=== PATIENT | female | born 1980 | race Caucasian/White ===

== ENCOUNTER 2019-05-18 06:33 | Outpatient (CLI) | payer OTHER, SELFPAY ==
[2019-05-18 07:25] LABS: Hematocrit 42.2 % (37.0-47.0); Hemoglobin 14.4 g/dL (12.0-15.0); Mean Corpuscular HGB Conc 34.1 g/dl (32-36); Mean Corpuscular Hemoglobin 30.1 pg (26-34); Mean Corpuscular Volume 88.1 fl (80-100); Mean Platelet Volume 9.6 fl (7.4-10.4); Platelet Count Result 268 k/mm3 (150-375); Red Blood Count 4.79 M/mm3 (4.2-5.4); Red Cell Distribution Width 12.4 % (11.5-14.5); White Blood Count 4.1 K/mm3 (4.5-10.0)
[2019-05-18 07:38] LABS: Blood Urea Nitrogen 14 mg/dL (7-17); Calcium 8.9 mg/dL (8.4-10.2); Carbon Dioxide 26 mmol/L (22-30); Chloride 100 mmol/L (98-107); Estimated Glomerular Filt Rate > 60; Glucose 78 mg/dL (65-105); Potassium 3.9 mmol/L (3.4-5.0); Sodium 139 mmol/L (137-145)
[2019-05-18 08:45] LABS: Folic Acid > 20.0 ng/mL (2.76->20)
== END 2019-05-18 06:34 | disposition home or self-care (01) ==
PROVIDERS: PCP Family Medicine; Visit Provider Nurse Practitioner Family
DX: R20.2 Paresthesia of skin (principal); E53.8 Deficiency of other specified B group vitamins
CPT/HCPCS: 36415; 80048; 82607; 82746; 84443; 85027

== ENCOUNTER 2019-12-31 09:04 | Emergency (ER) | payer OTHER, SELFPAY ==
--- NOTE | ~2019-12-31 | US_ITS ---
EXAMINATION: US pelvic complete w TV DATE: 12/31/2019 11:17 INDICATION: Left lower quadrant abdominal pain. TECHNIQUE: Multiple transabdominal and transvaginal sonographic images of the pelvis were obtained. COMPARISON: CT abdomen and pelvis 12/31/2019 FINDINGS: TRANSABDOMINAL ULTRASOUND: The uterus measures 9.6 x 4.3 x 4.5 cm. There is trace free fluid in the pelvis. TRANSVAGINAL ULTRASOUND: The endometrial complex measures 6 mm in thickness. The right ovary measures 3.2 x 2.4 x 2.7 cm. The left ovary measures 3.6 x 2.6 x 2.1 cm. There is normal vascular flow in the ovaries. IMPRESSION: 1. Normal pelvis. Reviewed, dictated and finalized at location A. IMPRESSION: 1. Normal pelvis.
--- NOTE | ~2019-12-31 | CT_ITS ---
EXAMINATION: CT abdomen pelvis w con DATE: 12/31/2019 10:11 INDICATION: Low abdominal pain. TECHNIQUE: Computed tomography (CT) of the abdomen and pelvis was performed with 100 mL Omnipaque 350 intravenous contrast. Automated exposure control and iterative reconstruction technique were employe d. The dose-length product was 260.15 mGy-cm. COMPARISON: None. FINDINGS: The visualized portions of the lung bases are clear without pneumonia or pleural effusion. The heart size is normal. No pericardial effusion. There are cysts in the liver measuring up to 1.5 c m. The gallbladder, spleen, pancreas, adrenal glands, and kidneys are normal. There are no dilated lo ops of bowel. The appendix is normal. There are no pathologically enlarged lymph nodes. There is trac e pelvic ascites. There is mild lumbar spondylosis. IMPRESSION: 1. No etiology for the patient's symptoms. Reviewed, dictated and finalized at location A.
[2019-12-31 09:08] VITALS: BP 152/83; PULSE 95; RESP 16; TEMP 36.2; O2SAT 100
--- NOTE | 2019-12-31 09:24 | ED.ABDPAIN ---
HPI - Abdominal Pain General Chief Complaint: Abdominal Pain Stated Complaint: abd pain Time Seen by Provider: 12/31/19 09:11 Source: patient Mode of arrival: ambulatory Limitations: no limitations History of Present Illness HPI narrative: This patient is a 39 year old female who presents for an evaluation of lower abdominal pain for 6 days. She states starting on Thursday she developed lower abdominal bloating with constipation. She has been taking laxatives and she is having bowel movements. She has continued to have constant lower abdominal pain and she developed nausea on Thursday. She denies vomiting, fever or urinary symptoms. She denies radiating pain to her back. Currently her pain is 5/10. Related Data Home Medications Medication Instructions Recorded Confirmed No Home Medications 12/31/19 12/31/19 Allergies Allergy/AdvReac Type Severity Reaction Status Date / Time No Known Allergies Allergy Unknown Verified 12/31/19 09:09 Review of Systems Review of Systems: All systems reviewed & are unremarkable except as noted in HPI and below Constitutional: Constitutional: Denies chills and Denies fever(s) Gastrointestinal: Gastrointestinal: Reports abdominal pain, Reports constipation, Reports nausea and Denies vomiting Genitourinary: Genitourinary: Denies hematuria, Denies dysuria and Denies flank pain Musculoskeletal: Musculoskeletal: Denies back pain PMFSH Past Medical History Medical History (Updated 12/31/19 @ 11:55 by Malena Johnson MD) Patient denies medical problems Surgical History Surgical History (Updated 12/31/19 @ 09:25 by Malena Johnson MD) H/O section Family History Family History (System 11/29/19 @ 09:08 by Tara Newman) Other Diabetes mellitus Social History Social History (System 11/29/19 @ 09:08 by Tara Newman) Smoking status: Never smoker Alcohol intake: current Substance use: never Substance use type: does not use Gender identity (if verbalized by the patient): Female Exam Const: General: no acute distress and alert Orientation/consciousness: patient oriented x3 HENMT: Head: atraumatic General nose exam: No nasal polyps present Face and sinus: face symmetric Mouth: Yes Normal oral and palatal mucosa present, Yes lip normal, Yes oropharynx normal and Yes moist mucous membranes Resp: Effort & Inspection: normal respiratory effort and no retractions Auscultation: clear to auscultation bilaterally Cardio: Rate: regular rate Rhythm: regular rhythm Heart sounds: no murmurs GI: GI Palp: Yes Soft to palpation, Yes Tenderness to palpation present (GI) (LLQ), Yes Guarding due to palpation present (GI) and No Rigid due to palpation Skin: General skin exam: normal color Rashes: no rashes Neuro: General: patient oriented x3 and moves all extremities Course Reevaluation(s) Reevaluation #1: I discussed with patient that CT and ultrasound are unremarkable. She declined pain medications. I discsused discharge plan and treatment. She will increase fiber intake. She denies vaginal discharge to suggest need for pelvic exam Date: 12/31/19 Time: 11:52 Vital Signs Vital signs: Vital Signs Temperature 97.1 F L 12/31/19 09:08 Pulse Rate 95 12/31/19 09:08 Respiratory Rate 16 12/31/19 09:08 Blood Pressure 152/83 H 12/31/19 09:08 Pulse Oximetry 100 12/31/19 09:08 Temperature 97.1 F L 12/31/19 09:08 Pulse Rate 78 12/31/19 12:05 Respiratory Rate 14 12/31/19 12:05 Blood Pressure 132/88 12/31/19 12:05 Pulse Oximetry 97 12/31/19 12:05 MDM - Abdominal Pain Lab Data Attestation: I reviewed the patient's lab results. Result diagrams: 12/31/19 09:36 12/31/19 09:36 Labs: Lab Results 12/31/19 12/31/19 12/31/19 Range/Units 09:36 09:36 09:36 WBC 5.6 (4.5-10.0) K/mm3 RBC 4.80 (4.2-5.4) M/mm3 Hgb 14.8 (12.0-15.0) g/dL Hct 43.8 (37
[2019-12-31 09:46] LABS: Basophils Absolute Auto 0.1 K/mm3 (0.0-0.1); Basophils Percent Auto 0.9 % (0.2-1.2); Eosinophils Absolute Auto 0.3 K/mm3 (0-0.3); Eosinophils Percent Auto 5.5 % (0-4.4); Hematocrit 43.8 % (37.0-47.0); Hemoglobin 14.8 g/dL (12.0-15.0); Immature Granulocyte Absolute 0.01 K/mm3 (0.00-0.031); Immature Granulocyte Percent A 0.2 % (0-0.5); Lymphocytes Absolute Auto 1.64 K/mm3 (0.9-3.2); Lymphocytes Percent Auto 29.1 % (18.3-44.2); Mean Corpuscular HGB Conc 33.8 g/dl (32-36); Mean Corpuscular Hemoglobin 30.8 pg (26-34); Mean Corpuscular Volume 91.3 fl (80-100); Mean Platelet Volume 10.1 fl (7.4-10.4); Monocytes Absolute Auto 0.4 K/mm3 (0.1-0.6); Monocytes Percent Auto 7.1 % (2.6-8.5); Neutrophils Absolute Auto 3.2 K/mm3 (1.3-6.7); Neutrophils Percent Auto 57.2 % (45.5-73.1); Platelet Count Result 222 k/mm3 (150-375); Red Cell Distribution Width 12.7 % (11.5-14.5); White Blood Count 5.6 K/mm3 (4.5-10.0)
[2019-12-31 09:48] LABS: Add Urine Microscopic? NO; Appearance Urine Clear (Clear); Bilirubin Urine Negative (Negative); Blood Urine Negative (Negative); Color Urine Straw (Yellow); Glucose Urine UA Negative (Negative); Ketones Urine Negative (Negative); Leukocyte Esterase Ur Negative LEU/UL (Negative); Nitrate Urine Negative (Negative); Protein Urine Negative (Negative); Specific Grav Ur 1.006 (1.001-1.035); Urobilinogen Urine Negative mg/dL (<2.0)
[2019-12-31 09:58] LABS: Alanine Aminotransferase 15 U/L (4-35); Albumin Level 4.6 g/dL (3.5-5.1); Alkaline Phosphatase 43 U/L (38-126); Anion Gap 8 mmol/L (8-16); Aspartate Amino Transferase 26 U/L (14-36); Bilirubin,Total 0.6 mg/dL (0.2-1.3); Blood Urea Nitrogen 9 mg/dL (7-17); Carbon Dioxide 31 mmol/L (22-30); Chloride 101 mmol/L (98-107); Estimated CRCL calculation 85 ml/min; Estimated Glomerular Filt Rate > 60; Glucose 77 mg/dL (65-105); Lipase 80 U/L (23-300); Potassium 3.6 mmol/L (3.4-5.0); Sodium 140 mmol/L (137-145)
[2019-12-31 10:49] VITALS: BP 133/84; PULSE 80; RESP 18; O2SAT 98
[2019-12-31 12:05] VITALS: BP 132/88; PULSE 78; RESP 14; O2SAT 97
== END 2019-12-31 12:26 | disposition home or self-care (01) ==
PROVIDERS: Emergency Provider General Practice; PCP Family Medicine
DX: R10.32 Left lower quadrant pain (principal); R19.4 Change in bowel habit
CPT/HCPCS: 36415; 74177; 76830; 76856; 80053; 81003; 81025; 83690; 85025; 99284; Q9967

== ENCOUNTER 2020-01-05 08:39 | Outpatient (CLI) | payer OTHER, SELFPAY ==
--- NOTE | 2020-01-05 11:00 | NEURO_ITS ---
Patient Number: [id number] Impression: # Complains of right foot dysesthesia. # Normal nerve conduction study except right posterior tibial nerve relatively slower compared to left but still within normal range. # Normal needle/EMG exam. # Clinical correlation recommended. Nerve Conduction Studies Anti Sensory Summary Table Stim Site NR Peak (ms) P-T Amp (?V) Site1 Site2 Delta-P (ms) Dist (cm) Javi (m/s) Left Sup Fibular Anti Sensory (Ant Lat Mall) 14 cm 3.3 11.8 14 cm Ant Lat Mall 3.3 16.0 48 Right Sup Fibular Anti Sensory (Ant Lat Mall) 14 cm 3.1 11.9 14 cm Ant Lat Mall 3.1 16.0 52 Left Sural Anti Sensory (Lat Mall) Calf 3.7 20.6 Calf Lat Mall 3.7 16.0 43 Right Sural Anti Sensory (Lat Mall) Calf 3.2 11.9 Calf Lat Mall 3.2 16.0 50 Motor Summary Table Stim Site NR Onset (ms) O-P Amp (mV) Site1 Site2 Delta-0 (ms) Dist (cm) Javi (m/s) Left Peroneal Motor (Vastus Med) Ankle 3.9 3.9 Popit Ankle 6.5 37.0 57 Popit 10.4 3.8 Right Peroneal Motor (Vastus Med) Ankle 3.9 3.9 Popit Ankle 6.8 36.0 53 Popit 10.7 3.4 Left Tibial Motor (Abd Duenas Brev) Ankle 4.4 3.8 Knee Ankle 7.0 40.0 57 Knee 11.4 3.5 Right Tibial Motor (Abd Duenas Brev) Ankle 4.1 7.4 Knee Ankle 8.4 40.0 48 Knee 12.5 6.3 F Wave Studies NR F-Lat (ms) L-R F-Lat (ms) Left Peroneal (Mrkrs) (EDB) 46.28 0.97 Right Peroneal (Mrkrs) (EDB) 47.25 0.97 Left Tibial (Mrkrs) (Abd Hallucis) 46.49 1.17 Right Tibial (Mrkrs) (Abd Hallucis) 47.66 1.17 EMG Side Muscle Nerve Root Ins Act Fibs Amp Dur Recrt Comment Right AntTibialis Dp Br Fibular L4-5 Nml Nml Nml Nml Nml Right Gastroc Tibial S1-2 Nml Nml Nml Nml Nml Right Fibularis Long Sup Br Fibular L5-S1 Nml Nml Nml Nml Nml Right Flex Dig Long Tibial L5-S2 Nml Nml Nml Nml Nml Right Ext Dig Brev Dp Br Fibular L5, S1 Nml Nml Nml Nml Nml Left AntTibialis Dp Br Fibular L4-5 Nml Nml Nml Nml Nml Left Gastroc Tibial S1-2 Nml Nml Nml Nml Nml Left Fibularis Long Sup Br Fibular L5-S1 Nml Nml Nml Nml Nml Left Flex Dig Long Tibial L5-S2 Nml Nml Nml Nml Nml Left Ext Dig Brev Dp Br Fibular L5, S1 Nml Nml Nml Nml Nml MTDD
== END 2020-01-05 08:40 | disposition home or self-care (01) ==
PROVIDERS: PCP Family Medicine; Visit Provider Nurse Practitioner Family
DX: R20.0 Anesthesia of skin (principal)
CPT/HCPCS: 95886; 95910

== ENCOUNTER 2020-06-18 12:15 | Emergency (ER) | payer OTHER, SELFPAY ==
--- NOTE | ~2020-06-18 | XR_ITS ---
EXAMINATION: XR chest 2V DATE: 06/18/2020 12:53 INDICATION: Cough and wheezing. TECHNIQUE: Frontal and lateral views of the chest were obtained. COMPARISON: Chest single view 11/05/2016, CT abdomen and pelvis 12/31/2019 FINDINGS: The chest demonstrates clear lungs without pneumonia, pleural effusion, or pneumothorax. Th e heart size is normal. IMPRESSION: 1. No acute cardiopulmonary disease. Reviewed, dictated and finalized at location A.
[2020-06-18 12:32] VITALS: BP 122/84; PULSE 99; RESP 20; TEMP 36.9; O2SAT 100
--- NOTE | 2020-06-18 12:43 | ED.URI ---
HPI - URI/Sore Throat General Chief Complaint: Upper Respiratory Infection Stated Complaint: cough/fever/fatigue/wheezing Time Seen by Provider: 06/18/20 12:43 Source: patient, RN notes reviewed and old records reviewed Mode of arrival: ambulatory Limitations: no limitations History of Present Illness HPI Narrative: 39 year old female who presents to [facility] care with complaints of cough and congestion, fevers, body aches for one week duration. Patient states that she had negative COVID test 2 days ago and has had COVID vaccinations in March. Patient states that she has noted some intermittent wheezing and expectoration of green yellow mucous at times with highest fever of 100.8 F, has been taking Mucinex for her symptoms. Patient denies any acute shortness of breath, respiration even and nonlabored, SAO2 100% on room air. Patient states that her has been ill for 2 weeks. MD elicited complaint: cough, rhinorrhea and other (wheezing) Pertinent past history: pneumonia and other (bronchitis) Onset (ago): week(s) (1) Consistency: intermittent Severity: moderate Description of mucous: yellow Able to tolerate fluids by mouth: Yes Exacerbating factors: exertion Relieving factors: nothing Context: sick contacts ( also ill) Associated symptoms: fever, chills, myalgias, rhinorrhea, cough and other (wheezing) Treatments prior to arrival: other (mucinex) Related Data Allergies Allergy/AdvReac Type Severity Reaction Status Date / Time No Known Allergies Allergy Unknown Verified 06/18/20 12:45 Review of Systems Review of Systems: Narrative: CONSTITUTIONAL:Positive intermittent fever, chills, or sweats. EYES: Denies visual changes, redness, or discharge. ENT: Positive rhinorrhea,no congestion, sore throat, or otalgia. CARDIOVASCULAR: Denies chest pain, palpitations, or edema. RESPIRATORY: Positive cough denies any acute dyspnea. GASTROINTESTINAL: Denies abdominal pain, nausea, vomiting, or diarrhea. GENITOURINARY: Denies dysuria or hematuria. SKIN: Denies rash or itching. MUSCULOSKELETAL: Denies back pain, joint pain, generalized body aches. NEUROLOGIC: Denies headache, numbness, or weakness. PSYCHIATRIC: Denies anxiety or depression. All systems reviewed & are unremarkable except as noted in HPI and below PMFSH Past Medical History Medical History (Updated 06/18/20 @ 13:31 by Lydia Gama NP) Bronchitis Encounter for in vitro fertilization Infertility Pneumonia Surgical History Surgical History (Updated 06/18/20 @ 12:58 by Lydia Gama NP) H/O section History of tonsillectomy Hx of breast augmentation Family History Family History Mother Cancer of thyroid Other Diabetes mellitus Social History Social History (Updated 06/18/20 @ 12:49 by Lydia Gama NP) Smoking status: Never smoker Alcohol intake: current Substance use: never Substance use type: does not use Living arrangements: with family Gender identity (if verbalized by the patient): Female Comments At time of signature, agree with nursing past medical, surgical, social and family history. There is no relevant family history pertinent to the presenting complaint Exam Narrative: Exam Narrative: GENERAL: Well-appearing, well-nourished, and in no acute distress. HEAD: Normocephalic, atraumatic. EYES: PERRLA and EOMI. ENT: Nares clear, clear rhinorrhea no epistaxis. Mucous membranes moist.TM's normal with good light reflex, throat pink with no lesions exudates or tonsil enlargement. NECK: Supple.no lymphadenopathy CHEST: Wheezes right upper lobe, rhonchi right lung base on auscultation. No acute respiratory distress. productive cough, SAO2 100% on room air. HEART: Regular rate and rhythm. No murmur heard. Normal peripheral pulses. ABDOMEN: Soft, nontender, nondistended, normal active bowel sounds. EXTREMITIES: Normal range of motion. No edema.body aches SKI
== END 2020-06-18 13:10 | disposition home or self-care (01) ==
PROVIDERS: Emergency Provider Registered Nurse; PCP Family Medicine
DX: J40 Bronchitis, not specified as acute or chronic (principal)
CPT/HCPCS: 71046; 99213; G0463

== ENCOUNTER 2020-10-02 07:06 | Outpatient (CLI) | payer OTHER, SELFPAY ==
[2020-10-02 07:27] LABS: Hematocrit 41.6 % (37.0-47.0); Hemoglobin 13.9 g/dL (12.0-15.0); Mean Corpuscular HGB Conc 33.4 g/dl (32-36); Mean Corpuscular Hemoglobin 30.1 pg (26-34); Mean Platelet Volume 9.9 fl (7.4-10.4); Platelet Count Result 217 k/mm3 (150-375); Red Blood Count 4.62 M/mm3 (4.2-5.4); Red Cell Distribution Width 12.9 % (11.5-14.5); White Blood Count 5.1 K/mm3 (4.5-10.0)
[2020-10-02 07:39] LABS: Anion Gap 7 mmol/L (8-16); Blood Urea Nitrogen 9 mg/dL (7-17); Calcium 8.9 mg/dL (8.4-10.2); Carbon Dioxide 28 mmol/L (22-30); Chloride 104 mmol/L (98-107); Estimated Glomerular Filt Rate > 60; Glucose 92 mg/dL (65-110); Potassium 4.3 mmol/L (3.4-5.0); Sodium 139 mmol/L (137-145)
[2020-10-02 08:35] LABS: Vitamin D 25 Hydroxy 46.2 ng/mL
[2020-10-02 10:25] LABS: Iron 49 ug/dL (37-170)
[2020-10-02 10:43] LABS: Percent Iron Saturation 16 % (20-50)
== END 2020-10-02 07:07 | disposition home or self-care (01) ==
PROVIDERS: PCP Family Medicine; Visit Provider Nurse Practitioner Family
DX: R74.8 Abnormal levels of other serum enzymes (principal); E53.8 Deficiency of other specified B group vitamins; F41.9 Anxiety disorder, unspecified; R53.83 Other fatigue; E55.9 Vitamin D deficiency, unspecified
CPT/HCPCS: 36415; 80048; 82306; 83540; 83550; 84443; 85027

== ENCOUNTER 2021-01-25 12:14 | Outpatient (CLI) | payer OTHER, SELFPAY ==
[2021-01-30 14:32] LABS: FSH 25.8 mIU/mL (***); LH 5.1 mIU/mL (***)
== END 2021-01-25 12:15 | disposition home or self-care (01) ==
LOC: ANHLAB 12:18
PROVIDERS: PCP Family Medicine; Visit Provider Obstetrics & Gynecology
DX: N92.6 Irregular menstruation, unspecified (principal)
CPT/HCPCS: 36415; 83001; 83002

== ENCOUNTER 2021-03-02 12:09 | Emergency (ER) | payer OTHER, SELFPAY ==
[2021-03-02 12:26] VITALS: BP 135/70; PULSE 70; RESP 18; TEMP 36.6; O2SAT 100
--- NOTE | 2021-03-02 12:58 | ED.URI ---
HPI - URI/Sore Throat General Chief Complaint: Upper Respiratory Infection Stated Complaint: Sore Throat Source: patient and RN notes reviewed Limitations: no limitations History of Present Illness HPI Narrative: The vaccinated patient, a non-smoker/nondrinker nurse accounts payable administrator, presents with a shorter 1 day history of sore throat. No fever, cough, earache; no loss of taste/smell, CP, S OB, vomiting/diarrhea., She saw exudate; PMH is remarkable for tonsillectomy Related Data Allergies Allergy/AdvReac Type Severity Reaction Status Date / Time No Known Allergies Allergy Unknown Verified 10/01/20 12:54 Review of Systems Review of Systems: General/Constitutional: No weight loss,fever Eyes: N0: Redness,discharge Ears/Nose/Throat: No: Epistaxis,ear discharge Respiratory: Denies: Hemoptysis Gastrointestinal: No Vomiting, Bleeding-rectal Skin: No Lumps, eruption Neurologic: No Focal Weakness,Sz Hematologic: Denies: Petechiae/Purpura Psychiatric: No: Suicida ideationl All Other Systems: Reviewed and Negative PMFSH Past Medical History Medical History Bronchitis Encounter for in vitro fertilization Infertility Pneumonia Surgical History Surgical History H/O section History of tonsillectomy Hx of breast augmentation Family History Family History Mother Cancer of thyroid Other Diabetes mellitus Social History Social History Smoking status: Never smoker Alcohol intake: current Substance use: never Substance use type: does not use Gender identity (if verbalized by the patient): Female Comments At time of signature, agree with nursing past medical, surgical, social and family history. There is no relevant family history pertinent to the presenting complaint Exam Narrative: General Appearance: Well appearing, Well nourished EYE: PERRLA, Conjunctiva clear Ears: Auditory canal normal, TM normal Nose: Rhinorrhea, Mucousal erythema, Mouth/Throat: MM moist, Uvula midline, Pharyngeal erythema /ulcerated no exudate now Supple, No adenopathy Cardio-pulmonary: RRR, No JVD, No respiratory distress, Breath sounds equal, CTA Musculoskeletal: Non tender, Normal strength, Warm, Dry Neurological: A&O x3, Normal affect Course Vital Signs Vital signs: Vital Signs Temperature 97.9 F 03/02/21 12:26 Pulse Rate 70 03/02/21 12:26 Respiratory Rate 18 03/02/21 12:26 Blood Pressure 135/70 03/02/21 12:26 Pulse Oximetry 100 03/02/21 12:26 Temperature 97.9 F 03/02/21 12:26 Pulse Rate 70 03/02/21 12:26 Respiratory Rate 18 03/02/21 12:26 Blood Pressure 135/70 03/02/21 12:26 Pulse Oximetry 100 03/02/21 12:26 MDM - URI/Sore Throat Lab Data Labs: Strep Screen Presumptive Negative *(Reference Range: Negative)* Discharge Plan Discharge Clinical Impression: Palatal ulcer Patient Disposition: Home, Self-Care Condition: Stable Instructions: Pharyngitis (ED) Prescriptions: New azithromycin 250 mg tablet See Rx Instructions .ROUTE .COMPLEX Qty: 6 RF: 0 benzonatate 100 mg capsule 100 mg PO TID PRN (Reason: cough) Qty: 20 RF: 2 lidocaine HCl [Lidocaine Viscous] 2 % solution 5 ml MUCOUS MEM QID PRN (Reason: pain) Qty: 100 RF: 0 azelastine 137 mcg (0.1 %) aerosol,spray 137 mcg NASAL Q12H Qty: 30 RF: 0 Follow-up/Referrals: Joe Jeffers MD [Primary Care Provider] -
== END 2021-03-02 13:03 | disposition home or self-care (01) ==
PROVIDERS: Emergency Provider Emergency Medicine; PCP Family Medicine
DX: K12.1 Other forms of stomatitis (principal)
CPT/HCPCS: 87081; 87880; 99213; G0463

== ENCOUNTER 2021-05-26 10:02 | Emergency (ER) | payer OTHER, SELFPAY ==
[2021-05-26 10:15] VITALS: BP 144/89; PULSE 107; RESP 16; TEMP 36.7; O2SAT 100
--- NOTE | 2021-05-26 10:21 | ED.URI ---
HPI - URI/Sore Throat General Chief Complaint: Upper Respiratory Infection Stated Complaint: headache,chills,body aches,fever Time Seen by Provider: 05/26/21 10:10 Source: patient and RN notes reviewed History of Present Illness HPI Narrative: Patient is a 40-year-old female presents the urgent care with complaints of fever, body aches, sore throat and chills. Patient states that it started on Thursday with a sore throat which is what brought her here this morning due to the intense pain last night . Patient states she has been taking Advil and [id number] allergy medication. Patient denies of any ill contacts. Patient has not had the COVID vaccine or the flu vaccine. Denies of any cough, nausea or vomiting. No other acute complaints. No acute distress noted. Patient aware of the plan of care. Some parts of this dictation were generated by voice recognition software and may contain typographical and/or grammatical inaccuracies. Related Data Allergies Allergy/AdvReac Type Severity Reaction Status Date / Time No Known Allergies Allergy Unknown Verified 05/26/21 10:16 Review of Systems Review of Systems: CONSTITUTIONAL: Reports of fever, chills, fatigue EYES: Denies visual changes, redness, or discharge. ENT: Denies rhinorrhea, congestion, otalgia. Reports of sore throat CARDIOVASCULAR: Denies chest pain, palpitations, or edema. RESPIRATORY: Denies cough or dyspnea. GASTROINTESTINAL: Denies abdominal pain, nausea, vomiting, or diarrhea. GENITOURINARY: Denies dysuria or hematuria. SKIN: Denies rash or itching. MUSCULOSKELETAL: Denies back pain, joint pain. Reports body aches NEUROLOGIC: Reports of intermittent headaches All other systems reviewed are negative, except as documented in HPI. [facility] Past Medical History Medical History Bronchitis Encounter for in vitro fertilization Infertility Pneumonia Surgical History Surgical History H/O section History of tonsillectomy Hx of breast augmentation Family History Family History Mother Cancer of thyroid Other Diabetes mellitus Social History Social History Smoking status: Never smoker Alcohol intake: current Substance use: never Substance use type: does not use Gender identity (if verbalized by the patient): Female Comments At the time of my signature, I reviewed and agree with the nursing past medical, surgical, social, and family history. There is no relevant family history pertinent to the patient complaint. Exam Narrative: GENERAL: This is a well-nourished, well-developed patient, in no apparent distress. HEAD: normocephalic, atraumatic. EYES: PERRL. Sclera clear/white. Vision is grossly intact. EARS: External ears normal, auditory canals clear and without drainage, TMs normal without perforation. Hearing grossly intact. NOSE: External nose normal with no obvious nasal discharge, nares without redness, clear to yellow rhinorrhea. THROAT: Mucous membranes moist. No erythema noted posterior oropharynx with moderate postnasal drainage NECK: Neck supple, mild tender bilateral submandibular lymphadenopathy CARDIOVASCULAR: Regular rate and rhythm without murmurs, gallops, or rubs. RESPIRATORY: Clear to auscultation. Breath sounds equal bilaterally. No wheezes, rales, or rhonchi. SKIN: warm, intact with no suspicious lesions or rash, good texture and turgor. NEURO: awake, alert, and oriented to person, place and time. There were no obvious focal neurologic abnormalities. EXTREMITIES: No clubbing, cyanosis, or edema. Course Course Level of Care: Express Care Visit Vital Signs Vital signs: Vital Signs Temperature 98.0 F 05/26/21 10:15 Pulse Rate 107 H 05/26/21 10:15 Respiratory Rate 16 05/26/21 10:15 B
== END 2021-05-26 10:56 | disposition home or self-care (01) ==
PROVIDERS: Emergency Provider Nurse Practitioner Family; PCP Family Medicine
DX: R59.1 Generalized enlarged lymph nodes (principal); B34.9 Viral infection, unspecified
CPT/HCPCS: 87081; 87804; 87880; 99213; G0463

== ENCOUNTER 2021-07-12 16:59 | Emergency (ER) | payer OTHER, SELFPAY ==
--- NOTE | ~2021-07-12 | XR_ITS ---
EXAMINATION: XR chest 2V DATE: 07/12/2021 17:17 INDICATION: COVID positive. Cough. TECHNIQUE: PA and lateral views of the chest were obtained. COMPARISON: Chest radiograph dated 06/18/2020 FINDINGS: The lungs are clear with no focal airspace opacities, pulmonary edema, pleural effusion or pneumothor ax. The cardiomediastinal silhouette is normal. Bilateral breast implants. Mild thoracic spondylosis. IMPRESSION: 1. No acute cardiopulmonary disease. Reviewed, dictated and finalized at location A.
[2021-07-12 17:04] VITALS: BP 148/81; PULSE 81; RESP 16; TEMP 36.4; O2SAT 100
[2021-07-12 17:05] VITALS: BP 148/81; PULSE 81; RESP 16; TEMP 36.4; O2SAT 100
--- NOTE | 2021-07-12 17:30 | ED.URI ---
HPI - URI/Sore Throat General Chief Complaint: Upper Respiratory Infection Stated Complaint: POSITIVE COVID/COUGH Time Seen by Provider: 07/12/21 17:30 Source: patient and RN notes reviewed Mode of arrival: ambulatory Limitations: no limitations History of Present Illness HPI Narrative: 40 y/o female known COVID positive 4 days ago, presented for c/o cough and congestion. States she felt rattling in her chest with deep breaths, her PCP advised her to get evaluated. Has been taking mucinex without relief. Has Rx Paxlovid but has not picked up the prescription. Also has tessalon perles and Flonase but has not taken them. Denies sob, wheezing, fatigue, n/v/d/f/c. MD elicited complaint: cough Related Data Allergies Allergy/AdvReac Type Severity Reaction Status Date / Time No Known Allergies Allergy Unknown Verified 05/26/21 10:16 Review of Systems Review of Systems: CONSTITUTIONAL: Denies malaise, chills, sweats, fever EYES: Denies visual changes, redness, or discharge ENT: Reports rhinorrhea, congestion, sinus pain CARDIOVASCULAR: Denies chest pain, palpitations, edema RESPIRATORY: Reports cough, post nasal drainage. Denies dyspnea GASTROINTESTINAL: Denies abdominal pain, nausea, vomiting, diarrhea SKIN: Denies rash or itching MUSCULOSKELETAL: Denies myalgia NEUROLOGIC: Denies headache PMFSH Past Medical History Medical History Bronchitis Encounter for in vitro fertilization Infertility Pneumonia Surgical History Surgical History H/O section History of tonsillectomy Hx of breast augmentation Family History Family History Mother Cancer of thyroid Other Diabetes mellitus Social History Social History Smoking status: Never smoker Alcohol intake: current Substance use: never Substance use type: does not use Gender identity (if verbalized by the patient): Female Exam Narrative: GENERAL:Well-appearing. HEAD: Normocephalic EYES: conjunctivae clear ENT: Mucous membranes moist. TM pearly hassan with dull light reflex bilaterally; no tragal tenderness. NECK: Supple. No lymphadenopathy CHEST: Clear to auscultation, breath sounds equal. No wheezing, rhonchi, rales, or stridor. HEART: Regular rate and rhythm. No murmur heard. SKIN: Warm, dry, no rash. NEURO: Alert and oriented x3. PSYCH: Normal mood and affect Course Course Emergency Course: Patient is aware of diagnosis, understands and agrees to treatment plan. Anticipatory guidance given. Patient agrees to follow-up as directed and is aware of reasons to seek care at the emergency department. Portions of this record may have been created with voice recognition software Level of Care: Express Care Visit Vital Signs Vital signs: Vital Signs Temperature 97.6 F 07/12/21 17:04 Pulse Rate 81 07/12/21 17:04 Respiratory Rate 16 07/12/21 17:04 Blood Pressure 148/81 H 07/12/21 17:04 Pulse Oximetry 100 07/12/21 17:04 Temperature 97.6 F 07/12/21 17:05 Pulse Rate 81 07/12/21 17:05 Respiratory Rate 16 07/12/21 17:05 Blood Pressure 148/81 H 07/12/21 17:05 Pulse Oximetry 100 07/12/21 17:05 reviewed MDM - URI/Sore Throat MDM Narrative Medical decision making narrative: Pt has tested positive for Covid earlier this week. CXR neg reviewed with pt. She is advised on supportive treatments and states she has the OTC meds at home. Differential Diagnosis Differential diagnosis: Likely upper respiratory infection, sinusitis, viral infection and bronchitis Imaging Data Radiologist's impression: Ordering Physician: Dannielle Santiago APRN Date of Service: 07/12/21 Procedure(s): XR chest 2V Accession Number(s): [id number] cc: Dannielle Santiago APRN; Joe Jeffers MD~ EXAMINATION: XR
== END 2021-07-12 17:44 | disposition home or self-care (01) ==
PROVIDERS: Emergency Provider Nurse Practitioner Family; PCP Family Medicine
DX: R05.9 Cough, unspecified (principal)
CPT/HCPCS: 71046; 99213; G0463

== ENCOUNTER 2021-09-19 09:07 | Outpatient (RCR) | payer OTHER, SELFPAY ==
[2021-09-19 12:59] LABS: Progesterone 53.1 ng/mL (***)
[2021-09-24 21:01] LABS: Progesterone 51.9 ng/mL (***)
== END 2021-12-16 23:59 | disposition home or self-care (01) ==
LOC: ANHLAB 09:07
PROVIDERS: PCP Family Medicine; Visit Provider Obstetrics & Gynecology
DX: Z32.00 Encounter for pregnancy test, result unknown (principal)
CPT/HCPCS: 36415; 84144; 84702

== ENCOUNTER 2022-02-19 07:29 | Outpatient (CLI) | payer OTHER, SELFPAY ==
[2022-02-19 09:30] LABS: Hematocrit 34.2 % (37.0-47.0)
[2022-02-19 09:40] LABS: Glucose 1 Hour PP 50gm Dose 96 mg/dL
[2022-02-19 10:21] LABS: HIV 1/2 Ab P24 Ag Result Negative (Negative)
== END 2022-02-19 07:30 | disposition home or self-care (01) ==
LOC: ANHLAB 07:30
PROVIDERS: PCP Family Medicine; Visit Provider Obstetrics & Gynecology
DX: Z34.90 Encounter for supervision of normal pregnancy, unspecified, unspecified trimester (principal); Z3A.00 Weeks of gestation of pregnancy not specified
CPT/HCPCS: 36415; 82947; 85014; 85018; 86703; G0432

== ENCOUNTER 2022-03-11 16:54 | Emergency (ER) | payer OTHER, SELFPAY ==
[2022-03-11 17:05] VITALS: BP 116/61; PULSE 74; RESP 16; TEMP 36.1; O2SAT 100
--- NOTE | 2022-03-11 17:19 | ED.EAR ---
HPI - Ear Problem General Chief complaint: Ear Stated complaint: Bilateral Ear Irritation Time Seen by Provider: 03/11/22 17:19 Source: patient, RN notes reviewed and old records reviewed Mode of arrival: ambulatory Limitations: no limitations History of Present Illness HPI Narrative: 41-year-old female presents to the [facility] with complaints of bilateral ear fullness, Discomfort since Thursday, [address] Mir's office and was referred to the [facility]. Patient 30 weeks has not taken anything due to status Related Data Allergies Allergy/AdvReac Type Severity Reaction Status Date / Time No Known Allergies Allergy Unknown Verified 03/11/22 17:21 Review of Systems Review of Systems: All systems reviewed & are unremarkable except as noted in HPI and below Constitutional: Constitutional: Reports no additional constitutional complaints Eyes: Eyes: Reports no additional eye complaints ENT: Reports as per HPI, Denies ear discharge, Reports otalgia, Denies facial pain and Reports nasal congestion Cardiovascular: Cardiovascular: Reports no additional cardiovascular complaints, Denies chest pain and Denies dyspnea Respiratory: Respiratory: Reports no additional respiratory complaints, Denies chest congestion, Denies cough and Denies dyspnea Gastrointestinal: Gastrointestinal: Reports no additional gastrointestinal complaints, Denies abdominal pain, Denies nausea and Denies vomiting Musculoskeletal: Musculoskeletal: Reports no additional musculoskeletal complaints Integumentary/Breasts: Skin/Breast: Reports system reviewed and no additional complaints, except as docu Neurologic: Reports system reviewed and no additional complaints, except as documented Psychiatric: Psychiatric: Reports no additional psychiatric complaints Allergic/Immunologic: Allergic/Immunologic: Reports no additional allergic/immunologic complaints PMFSH Past Medical History Medical History Bronchitis Encounter for in vitro fertilization Infertility Pneumonia Surgical History Surgical History H/O section History of tonsillectomy Hx of breast augmentation Family History Family History Mother Cancer of thyroid Other Diabetes mellitus Social History Social History Smoking status: Never smoker Alcohol intake: current Substance use: never Substance use type: does not use Gender identity (if verbalized by the patient): Female Comments At the time of my signature, I reviewed and agree with the nursing past medical, surgical, social, and family history. There is no relevant family history pertinent to the patient complaint. Exam Const: General: cooperative, healthy appearing, comfortable, no acute distress, well developed, alert and well nourished Nutritional Appearance: well nourished Orientation/consciousness: patient oriented x3 Limitations: no limitations HENMT: Head: normal to inspection Ears: hearing grossly normal bilaterally, external ears normal, EAC's normal and TM abnormal bulging bilateral, erythematous on the left and with fluid behind the TM on the right Face/Nose/Sinus: Normal external nose present, Normal nares present, Normal nasal mucous membranes and turbinates present and normal facial exam Face and sinus: normal facial exam Mouth: Yes Normal oral and palatal mucosa present, Yes lip normal and Yes moist mucous membranes Throat: posterior oropharynx normal and uvula midline Eyes: General: appearance normal, both eyes and all related structures Alignment and Position: alignment normal Periorbital: periorbital findings normal Conjunctivae: conjunctivae normal Pupils: Equal, round and reactive pupils present EOM: EOMs intact bilaterally Ne
== END 2022-03-11 17:37 | disposition home or self-care (01) ==
PROVIDERS: Emergency Provider Nurse Practitioner; PCP Family Medicine
DX: O99.891 Other specified diseases and conditions complicating pregnancy (principal); Z3A.30 30 weeks gestation of pregnancy; H66.92 Otitis media, unspecified, left ear; H65.01 Acute serous otitis media, right ear
CPT/HCPCS: 99213; G0463

== ENCOUNTER 2022-05-13 07:06 | Outpatient (CLI) | payer OTHER, SELFPAY ==
[2022-05-13 07:53] LABS: Hematocrit 39.9 % (37.0-47.0); Hemoglobin 13.5 g/dL (12.0-15.0); Mean Corpuscular HGB Conc 33.8 g/dl (32-36); Mean Corpuscular Hemoglobin 30.8 pg (26-34); Mean Corpuscular Volume 91.1 fl (80-100); Mean Platelet Volume 9.9 fl (7.4-10.4); Platelet Count Result 196 k/mm3 (150-375); Red Blood Count 4.38 M/mm3 (4.2-5.4); Red Cell Distribution Width 13.3 % (11.5-14.5); White Blood Count 11.4 K/mm3 (4.5-10.0)
[2022-05-13 09:51] LABS: Rapid Plasma Reagin Non-Reactive (NonReactive)
== END 2022-05-13 07:07 | disposition home or self-care (01) ==
PROVIDERS: PCP Family Medicine; Visit Provider Obstetrics & Gynecology
DX: G56.03 Carpal tunnel syndrome, bilateral upper limbs (principal)
CPT/HCPCS: 36415; 85027; 86592; 86850; 86900; 86901

== ENCOUNTER 2022-05-14 10:04 | Inpatient (IN) | payer OTHER, SELFPAY ==
[2022-05-14] VITALS (65 sets, daily range): BP systolic 102–156; BP diastolic 45–106; PULSE 76–124; RESP 16–20; TEMP 36–36.9; O2SAT 93–100; BMI 31.6
--- NOTE | 2022-05-14 08:13 | PM.IMHP ---
H&P: HPI History of Present Illness Date/Time: 05/14/22 08:13 Chief Complaint: Here for C section. Narrative: 41 y/o at 39 3/7 weeks here for repeat . Also desires permanent contraception with tubal ligation. GBS neg. uncomplicated. Review of Systems Review of Systems: All systems reviewed & are unremarkable except as noted in HPI and below PMFSH Past Medical History Medical History (Updated 05/14/22 @ 08:21 by Kennedy Meyers MD) Bronchitis Encounter for in vitro fertilization Infertility Pneumonia Surgical History Surgical History (Updated 05/14/22 @ 08:21 by Kennedy Meyers MD) H/O section History of tonsillectomy Hx of breast augmentation Family History Family History Mother Cancer of thyroid Grandparent Diabetes mellitus Social History Social History Smoking status: Never smoker Alcohol intake: current Substance use: never Substance use type: does not use Living arrangements: with family Occupation/Education: occupation Gender identity (if verbalized by the patient): Female Spiritual care concerns: No Meds Home Medications and Allergies Home Medications Medication Instructions Recorded Confirmed Type prenat.vits,dong,bwt-nukl-rdshi 1 tablet PO HS 04/21/22 04/21/22 History Allergies Allergy/AdvReac Type Severity Reaction Status Date / Time No Known Allergies Allergy Unknown Verified 03/11/22 17:21 Exam Const: Orientation/consciousness: patient oriented x3 Other: Well-developed, well-nourished female in no acute distress. Neck: Thyroid: thyroid normal Lymphatic: no lymphadenopathy noted (in neck, axilla or inguinal nodes) Resp: Effort & Inspection: normal respiratory effort Auscultation: clear to auscultation bilaterally Cardio: Rate: regular rate Rhythm: regular rhythm Heart sounds: S1 normal heart sound present and S2 normal heart sound present GI: Other: ABD: Soft, nontender, nondistended, gravid. FHR 150 bpm. No guarding or rebound tenderness. No hepatosplenomegaly. : General: Yes no CVA tenderness Other: Cervix fingertip / thick Back/Spine/Pelvis: Back: no CVA tenderness Skin: General skin exam: normal color and no rashes or lesions noted Neuro: General: patient oriented x3 Extrem: Other: Extremities: nontender with no edema Psych: Mental Status: mental status grossly normal Affect: normal affect Assessment and Plan Assessment and plan (1) Term : Code(s): Z34.90 - Encounter for supervision of normal , unspecified, unspecified trimester Status: Acute Assessment and Plan: A: IUP at 39 3/7 weeks with prior , desiring repeat . Also wants permanent contraception. P: She understands there are temporary methods of contraception available to her. She understands that there are nonsurgical options as well as surgical options. She understands that tubal ligation will render her permanently sterile. She understands that there is a failure rate associated with tubal ligation, as well as an inherent ectopic gestation risk. Furthermore, she understands risks of surgery to include risks of anesthesia, risks of pain, infection, bleeding, blood products, thromboembolic phenomena and damage to adjacent structures such as bowel, bladder, ureters, blood vessels and nerves. She understands all these risks and elects to proceed with repeat delivery with concurrent bilateral tubal ligation. She has received the ACOG pamphlet on surgical sterilization. (2) H/O section: Code(s): Z98.891 - History of uterine scar from previous surgery Status: Acute (3) Unwanted fertility: Code(s): Z30.09 - Encounter for other general counseling and advice on contraception Status: Acute
[2022-05-14] MEDS: LACTATED RINGERS 1,000 ML 125 ML IV CONT (10:41)
--- NOTE | 2022-05-14 10:47 | LDADM ---
This patient, Lara Kern, was admitted to Labor/Delivery/Recovery 119 on 05/14/22 at 10:04. Plans for surgery, , and pain management were discussed with patient. Patient/family oriented to hospital policies and general routines including ID bracelet, bed and alarms, visiting hours, pain management, procedures, bathroom and other care routines, personal items, smoking policy, room service/diet and guest tray routines, infant security routines, and visiting hours. Patient/Family are encouraged to report perceived risks to care and to ask questions if they do not understand what they are told or what they should do. See OBIX for further documentation.
--- NOTE | 2022-05-14 11:48 | WPDHPUPDATE1 ---
History and Physical Update Update Date/Time: 05/14/22 11:48 History and Physical has been reviewed, including an updated exam of the patient. She has begun to feel painful contractions in just the last hour. No vaginal bleeding or leakage of fluid. She still desires repeat . She still desires tubal ligation. Risks, benefits, and alternatives have been discussed and questions answered. Patient agrees to proceed with repeat delivery and concurrent bilateral tubal ligation.
[2022-05-14] MEDS: TERBUTALINE SULFATE 1 MG/ML VIAL 0.25 MG SUB-Q (11:49)
--- NOTE | 2022-05-14 11:52 | P.PNAN_ITS ---
Anes - Initial Pre Proc Eval Procedure: Operation Date: 05/14/22 12:00 Proposed Procedures p Repeat Section with Tubal Ligation - Kennedy Meyers MD Date/Time: 05/14/22 11:52 Surgeon: Kennedy Meyers MD Pre Op Diagnosis: Repeat C Section, Desires Sterilization Patient Data Age: 41 Gender: F Height: 1.65 m Weight: 86.3 kg Last Vital Signs Pulse 115 H 05/14/22 11:49 BP 156/82 H 05/14/22 11:49 Pulse Ox 100 05/14/22 11:51 O2 Del Method Room Air 05/14/22 10:47 Allergies Allergy/AdvReac Type Severity Reaction Status Date / Time No Known Allergies Allergy Unknown Verified 03/11/22 17:21 Home Medications Medication Instructions Recorded Confirmed Type prenat.vits,dong,nno-hahw-nemzv 1 tablet PO HS 04/21/22 05/14/22 History Patient hx anesthesia problems: none Family hx anesthesia problems: none Results Review: All pre-operative results and documents have been reviewed as part of the pre- operative evaluation. [facility] Past Medical History Medical History Bronchitis Encounter for in vitro fertilization Infertility Pneumonia Surgical History Surgical History H/O section History of tonsillectomy Hx of breast augmentation Family History Family History Mother Cancer of thyroid Grandparent Diabetes mellitus Social History Social History Smoking status: Never smoker Second hand tobacco smoke exposure: No Alcohol intake: current Substance use: never Substance use type: does not use Lack of Transportation: No Lack of Food: Never True Current Housing: I Have Housing Concerned About Future Housing: No Difficulty Paying Gas/Electric Bills: No Difficulty Paying for Meds: No Currently Unemployed: No Education: Bachelor's Degree Difficulty w/ Childcare or Family Care: No Living arrangements: with family Occupation/Education: occupation Gender identity (if verbalized by the patient): Female Spiritual care concerns: No Anes - Eval Final PreProcedure Day of Procedure 05/14/22 11:52 Patient weight: obese Heart: regular rate and rhythm Lungs: clear to auscultation Airway: Mallampati scale class II Neurological: alert and oriented Last oral intake: >/= 8 hours ASA classification: II Emergent: no Anesthetic plan: proceed Anesthesia type and monitoring: regional spinal and standard monitoring Results Review: All pre-operative results and documents have been reviewed as part of the pre- operative evaluation. Informed Consent: The patient's anesthetic plan and its attendant risks and benefits were discussed with the patient/family/POA. Questions were solicited and answers p rovided to the satisfaction of the patient/family/POA.
[2022-05-14] MEDS: ceFAZolin 2 GM/D5W 50 ML 2 GM/50 ML BAG IVPB (12:02)
[2022-05-14] MEDS: KETOROLAC 30 MG/ML VIAL (*BKC) IV PUSH (13:13)
[2022-05-14] MEDS: KETOROLAC 30 MG/ML VIAL (*BKC) 15 MG IV PUSH (13:13)
--- NOTE | 2022-05-14 13:15 | SUR.OPER ---
As additional 228 ml of clots expressed from uterus after delivery before leaving OR making total OR QBL 483.
--- NOTE | 2022-05-14 13:20 | SUR.PHASEI ---
Pt has 300 ml of IV fluids remaining in IV bag of 1000 ml with 10 units Pitocin.
--- NOTE | 2022-05-14 13:22 | PM.OBPRVD ---
OB - Delivery Note Procedure Delivery date: 05/14/22 Procedure: Procedures Operation Date: 05/14/22 12:00 Actual Procedure Side Surgeon p Repeat Section with Bilateral Tubal Ligation Bilateral Kennedy Meyers MD 1) Repeat low transverse delivery 2) Bilateral tubal ligation via modified Jabier technique Events: Previous Delivery Delivery monitor: External FHT and External Uterine Route of delivery: Specimen: Yes (cord blood, segments of bilateral Fallopian tubes) Quantitative Blood Loss (ml): 255 Anesthesia type: Spinal Disposition: PACU Complications: None Narrative: The patient was taken to the operating room where she was prepared and draped in the usual sterile fashion in dorsal supine position with a leftward tilt. She received cefazolin preoperatively. Spinal anesthesia was found to be adequate. A Pfannenstiel skin incision was made, excising the the previous scar line. The incision was carried through to the underlying layer of the fascia. The fascia was incised in the midline and the incision was extended laterally. The fascia was dissected free of the underlying rectus muscles. The rectus muscles were in the midline. The peritoneum was identified, tented up and entered sharply. Dense adhesions in the anterior cul de sac were carefully dissected, and the peritoneal incision was able to be extended with good visualization of the bladder. The bladder blade was placed. The vesicouterine peritoneum was identified, tented up and entered sharply. The incision was extended laterally and the bladder flap was developed. The bladder blade was replaced. The uterus was then incised sharply in a transverse fashion along the lower uterine segment. The incision was extended laterally. Meconium stained fluid was noted. The infant's head was delivered atraumatically to the sterile field, followed by the body. The nose and mouth were bulb suctioned. After a delay, the cord was clamped and cut. The infant was handed off the field. Cord blood was collected. The placenta was removed manually and was passed off the field. The uterus was exteriorized and cleared of all clots and debris. The uterine incision was reapproximated using 0 Monocryl in a running, locked fashion. Excellent hemostasis resulted as did excellent reapproximation of the normal anatomy. The left fallopian tube was then identified by following it out to the fimbriated end. It was grasped in the midportion with a Broseley clamp and a loop of tube was ligated with a free tie of 0 plain gut. The tubal segment was then transected and the specimen was passed off to be sent to pathology. Hemostasis was excellent. Attention was turned to the right fallopian tube, which was similarly identified, ligated and transected. Once again, excellent hemostasis resulted. The uterus was returned the abdomen. The pelvis was irrigated copiously with warmed normal saline. Hemaderm was applied to the bladder flap. Rigorous hemostasis was assured. The fascial layer was reapproximated using 0 Vicryl in a running fashion. The skin was closed with a running, subcuticular stitch of 4 0 Vicryl. Dermaflex was applied externally. Sponge, lap, needle and instrument counts were correct. The patient was taken to the recovery room in stable condition. The infant went to the nursery in stable condition. I was present and scrubbed the entire procedure. Baby Date of : 05/14/22 Time of : 12:36 Weeks of gestation at delivery: 39 Infant gender: Female Weight (pounds): 6 Weight (ounces): 13 presentation: vertex Placenta delivery description: Manual Removal and Normal Configuration Cord Vessel Description: 3 Vessels and Delayed Cord Clamping score one minute: 8 score five minutes: 9
--- NOTE | 2022-05-14 13:37 | PM.OBDSVD ---
DS: Admitting Diagnosis Discharge Date 05/16/22 Admitting Diagnosis IUP at 39 3/7 weeks Prior , desires repeat Desired sterility DS: Discharge Diagnosis Discharge Diagnosis (1) Term : Code(s): Z34.90 - Encounter for supervision of normal , unspecified, unspecified trimester Status: Acute (2) H/O section: Code(s): Z98.891 - History of uterine scar from previous surgery Status: Acute (3) Unwanted fertility: Code(s): Z30.09 - Encounter for other general counseling and advice on contraception Status: Acute OB - DS: Summary OB Procedures : None OB Procedures Intrapartum: and Tubal ligation OB Procedures: : None Peripartum Data Procedures: Procedures Operation Date: 05/14/22 12:00 Actual Procedure Side Surgeon p Repeat Section with Bilateral Tubal Ligation Bilateral Kennedy Meyers MD Time Spent with Patient Time attestation: Total time spent providing and/or coordinating discharge services: DS: Data Data Completed and Pending Pending studies at discharge: Pending at discharge 05/14/22 13:01 Surgical [PTH] Routine Discharge Plan Discharge Attending physician on discharge: Kennedy Meyers Discharging Clinician: Kennedy Meyers Patient Disposition: Home, Self-Care Activity: may shower, may drive after 2 weeks and pelvic rest Diet: regular Wound Care Instructions: incision open to air Discharge Instructions: Call or return if temperature above 100.4? F, increased abdominal pain, increased vaginal bleeding or any new problems. Education: Mom and Baby Guide Given to: Mother Follow-Up: Call your delivering provider's office for an appointment to be seen in: 4 Weeks Mom and baby should come to the [facility] for the follow-up appointment. Appointment Date/Time: May 17, 2022 at 10:00 am What to expect at your follow-up visit: Blood Pressure Check Physical Assessment Call [phone] if you are unable to keep your appointment time. BREAST CARE: * Wear a snug supportive bra. * For engorgement discomfort: Breast Pumping: * Apply warm moist washcloths * Express milk as needed to relieve engorgement * Wear loose clothing Bottle Feeding if not using breast pump: * May apply ice packs * For sore nipples: * Identify correct latch-on and/or flange size * Apply warm moist washcloths before and after nursing * Air dry nipples after nursing/pumping * May apply Lansinoh cream to nipples If you choose to use the breast pump, you should pump each breast 8x during a 24 hr period with 1-2x being @ night. See page 9 of the Mom & Baby Guide ABDOMINAL INCISION: * Allow incision to air dry * Do NOT use lotions for powders on your incision * When showering, allow soap and water to run over the incision, but do not wash incision PERINEAL CARE: * Until bleeding stops, use your neel bottle after urinating * Change your pad frequently throughout the day * You may take sitz baths several times a day (fill your bathtub with warm water and soak for 20 minutes.) Do NOT bathe in the water * No tub baths until seen by your physician - You may shower ACTIVITY: * Rest as much as possible. * Do not exercise or lift anything heavier than your baby (such as laundry or other children.) * Avoid stairs or driving as much as possible. * Do not put anything into the vagina. No douching, tampons, or sexual activity until seen by physician. NOTIFY PHYSICIAN IF YOU HAVE ANY QUESTIONS OR IF ANY OF THE FOLLOWING SYMPTOMS OCCUR: * If your incision becomes red, swollen, or more painful than what you have experienced in the hospital. * If your vaginal bleeding becomes foul smelling. * If your vaginal bleeding becomes more heavy than a period or if your bleeding changes from pink to bright
[2022-05-14] MEDS: OXYTOCIN 30 UNITS/NS 500 ML 30 UNITS/500 ML BAG 125 UNITS IV CONT (14:14)
[2022-05-14] MEDS: ONDANSETRON INJ 4 MG/2 ML VIAL IV PUSH (15:00)
--- NOTE | 2022-05-14 15:56 | PC.NURSE ---
Patient transferred to post room #286 via ( stretcher ). Support person present. Oriented to unit, room, information board, rooming in, admission packet and security measures. Patient verbalizes understanding.
[2022-05-14] MEDS: DEXTROSE 5%/0.45% SOD CHL 1,000 ML 125 ML IV CONT (19:06)
[2022-05-14] MEDS: DOCUSATE SODIUM 100 MG CAPSULE PO (19:07)
[2022-05-15] MEDS: HYDROcodone/acetaminophen (*CRX) 5-325 MG TABLET 1 TAB PO ×4 (04:05→20:40)
[2022-05-15 04:10] VITALS: BP 122/77; PULSE 87; RESP 18; TEMP 36.6; O2SAT 99
[2022-05-15 05:57] LABS: Basophils Absolute Auto 0.1 K/mm3 (0.0-0.1); Basophils Percent Auto 0.3 % (0.2-1.2); Eosinophils Percent Auto 0.1 % (0-4.4); Hematocrit 34.2 % (37.0-47.0); Hemoglobin 11.5 g/dL (12.0-15.0); Immature Granulocyte Absolute 0.12 K/mm3 (0.00-0.031); Immature Granulocyte Percent A 0.7 % (0-0.5); Lymphocytes Absolute Auto 1.48 K/mm3 (0.9-3.2); Lymphocytes Percent Auto 8.6 % (18.3-44.2); Mean Corpuscular HGB Conc 33.6 g/dl (32-36); Mean Corpuscular Hemoglobin 31.9 pg (26-34); Mean Platelet Volume 10.1 fl (7.4-10.4); Neutrophils Absolute Auto 14.6 K/mm3 (1.3-6.7); Neutrophils Percent Auto 84.3 % (45.5-73.1); Platelet Count Result 179 k/mm3 (150-375); Red Cell Distribution Width 13.4 % (11.5-14.5); White Blood Count 17.3 K/mm3 (4.5-10.0)
[2022-05-15 07:45] VITALS: BP 112/68; PULSE 90; RESP 18; TEMP 36.8; O2SAT 100
[2022-05-15] MEDS: MULTIVIT/MIN/PREN/FOL AC/IRON TABLET 1 TAB PO (08:34)
[2022-05-15] MEDS: DOCUSATE SODIUM 100 MG CAPSULE PO ×2 (08:34→20:40)
[2022-05-15] MEDS: SIMETHICONE 80 MG TAB.CHEW PO ×3 (08:35→20:42)
[2022-05-15] MEDS: IBUPROFEN 600 MG TABLET PO ×3 (08:35→20:41)
--- NOTE | 2022-05-15 09:00 | PM.OBPNVD ---
OB - PN: Subj Subjective Date/time seen: 05/15/22 09:00 Narrative: Pain OK. Tolerating diet. OB - PN: Obj Data Labs 05/15/22 03:53 Labs: Laboratory Results - last 24 hr 05/15/22 03:53 WBC 17.3 H RBC 3.60 L Hgb 11.5 L Hct 34.2 L MCV 95.0 MCH 31.9 MCHC 33.6 RDW 13.4 Plt Count 179 MPV 10.1 Immature Gran % (Auto) 0.7 H Neut % (Auto) 84.3 H Lymph % (Auto) 8.6 L Kleberg % (Auto) 6.0 Eos % (Auto) 0.1 Baso % (Auto) 0.3 Lymph # (Auto) 1.48 Kleberg # (Auto) 1.0 H Eos # (Auto) 0.0 Baso # (Auto) 0.1 Abs Immat Gran (auto) 0.12 H Absolute Neuts (auto) 14.6 H Absolute Nucleated RBC 0.0 Nucleated RBC % 0.0 OB - PN A/P Plan Comments: A: POD#1, doing well. P: Routine care. Exam Narrative: AVSS I/O OK ABD soft, nontender, fundus firm. Incision c/d/i. EXT nontender
--- NOTE | 2022-05-15 10:24 | WPDANLDPN2 ---
Anes-Prog Note L&D Date/Time: 05/15/22 10:24 Comfortable throughout: section Neuraxial method: spinal Epidural/Spinal procedure site: clean & non-tender Neuro status: Neuro function grossly intact. Cardiovascular status: normal Respiratory status: normal Airway patency: baseline Mental status: baseline Post-Op hydration status: normal Vital Signs: Last Vital Signs Temp 98.3 F 05/15/22 07:45 Pulse 90 05/15/22 07:45 Resp 18 05/15/22 07:45 BP 112/68 05/15/22 07:45 Pulse Ox 100 05/15/22 07:45 O2 Del Method Room Air 05/15/22 04:10 Pain score (VAS): 0 I/O: Intake & Output 05/14/22 05/15/22 05/15/22 23:59 07:59 15:59 Intake Total 300 1400 Output Total 150 1325 Balance 150 75 Post-procedural complaints: none Patient feedback: Patient satisfied with anesthetic care.
--- NOTE | 2022-05-15 12:05 | PC.NURSE ---
[phone] Introductions were made, then consulted with patient to assess needs related to . Mother led the conversation with her?plans to feed?her infant and the?experience so far. Resources provided for inpatient and outpatient services with the feeding sheet, mom/baby guide and name written on the white board. Mother voiced understanding of information and is requesting assistance. Reviewed that is had been 4 four hour since her had last fed with the bottle. Reviewed mothers history of low milk supply, breast augmentation, using the nipple shield and pumping. Risks and benefits were discussed. How to prevent and treat engorgement and masitis with guidelines on when to call the doctor. Mother works well with her with encouragement and education. Encouraged understanding of the benefits of skin to skin (demonstrating unwrapping infant and placing upright on her chest), stimulating with massage touch, changing positions to encourage wakefulness, how to watch for early feeding cues, responsive feeding, feeding on demand (aiming for 8-12 times in 24 hours, about every 2-3 hours), milk production, building/maintaining a milk supply, duration of feeding, signs of adequate intake/output and how to record on the feeding sheet. Reviewed positioning and ear, shoulder, hip alignment, supporting the breast with the sandwich hold to facilitate a deep latch, asymmetrical latch (off-center), leading with the chin with a big, open, wide gape and body close to mother. Infant attempted to latch to the right breast in cross cradle position, however; would hold the nipple in the mouth and not demonstrate pulling the breast into the mouth for a latch. is either crying or sleeping. Infant was paced bottle fed a small amount to calm the hungry behavior, placed skin to skin watching for feeding cue, then when visualized was placed to the breast and would either attempt with no latch, sleep or cry. Mother practiced pace bottle feeding for 13mls, then pumped her breast. Reviewed good handwashing when or touching the breast/nipples to prevent infection. Resources used to facilitate learning were used with the tool, mom and baby guide. Mother voiced understanding of skin to skin, stimulating with massage touch, responsive feedings, hand expressed colostrum, talking to infant to encourage if it has been 2 -2.5 hours since the start of the last , to call if infant does not latch, or if there is discomfort with . Resources provided for inpatient/outpatient with feeding sheet, name on the white board and the mom/baby guide. [phone] Colostrum from pumping was collected and spoon fed approximately 2mls of breast milk to the . Mother voiced understanding of information, demonstrated learning and will call if there is a request for assistance. Reported to the primary RN.
[2022-05-15 12:18] VITALS: BP 119/71; PULSE 79; RESP 16; TEMP 36.3; O2SAT 100
[2022-05-15 19:36] VITALS: BP 111/60; PULSE 87; RESP 18; TEMP 36.6; O2SAT 100
[2022-05-16 07:55] VITALS: BP 138/82; PULSE 99; RESP 18; TEMP 37.3; O2SAT 99
[2022-05-16] MEDS: IBUPROFEN 600 MG TABLET PO ×2 (08:38→15:22)
[2022-05-16] MEDS: DOCUSATE SODIUM 100 MG CAPSULE PO (08:38)
[2022-05-16] MEDS: SIMETHICONE 80 MG TAB.CHEW PO ×2 (08:38→12:25)
[2022-05-16] MEDS: MULTIVIT/MIN/PREN/FOL AC/IRON TABLET 1 TAB PO (08:38)
[2022-05-16] MEDS: HYDROcodone/acetaminophen (*CRX) 5-325 MG TABLET 1 TAB PO ×3 (08:39→15:21)
--- NOTE | 2022-05-16 09:26 | PC.NURSE ---
[id number] - Report received that mother doesn't request a consult or have questions at this time. Primary RN and Dr. Meyers encouraged patient this morning.
--- NOTE | 2022-05-16 11:23 | PC.NURSE ---
[phone] Provided outpatient contact information and to check and see if patient needed anything. Primary RN is present and the patient doesn't request anything at this time.
--- NOTE | 2022-05-16 12:25 | PC.NURSE ---
Patient to view the discharge video [facility], The First Two Weeks online. Patient was given the opportunity and encouraged to ask questions. Patient verbalized understanding of information shared and has been given the mother/baby guide for home reference.
--- NOTE | 2022-05-16 12:36 | PM.OBPNVD ---
OB - PN: Subj Subjective Date/time seen: 05/16/22 12:36 Narrative: Pain OK. Tolerating diet. OB - PN: Obj Data Labs 05/15/22 03:53 OB - PN A/P Plan Comments: A: POD#2, doing well. P: Routine care. Exam Narrative: AVSS I/O OK ABD soft, nontender, fundus firm. Incision c/d/i. EXT nontender
[2022-05-17 10:22] VITALS: BP 109/55; PULSE 84; RESP 20; TEMP 36.6; O2SAT 99
== END 2022-05-16 17:00 | disposition home or self-care (01) | DRG 785 ==
LOC: ANHLDR 13:40 → ANHOB2 16:00
PROVIDERS: Admitting Provider Obstetrics & Gynecology; PCP Family Medicine; Visit Provider Obstetrics & Gynecology
PROC: 10D00Z1 Extraction of Products of Conception, Low, Open Approach (ICD-10-PCS; CPT 59514; principal; 2022-05-14 12:00)
DX: O34.211 Maternal care for low transverse scar from previous cesarean delivery (principal); Z37.0 Single live birth; Z3A.39 39 weeks gestation of pregnancy; Z30.2 Encounter for sterilization
CPT/HCPCS: 36415; 85025; 88302; A9270; J0131; J0690; J1885; J2274; J2370; J2405; J2590; J3105; J7120